=== PATIENT | male | born 1990 | race Caucasian/White ===

== ENCOUNTER 2018-03-12 23:42 | Emergency (ER) | payer OTHER, BC ==
[2018-03-13 00:28] LABS: BASOPHILS 0.4 % (0-2); EOSINOPHILS 3.9 % (0-7); HEMATOCRIT 46.3 % (42.0-54.0); HEMOGLOBIN 16.3 g/dL (13.5-17.5); IMMATURE GRANULOCYTES 0.4 % (0-5); LYMPHOCYTES 35.9 % (15-50); MCH 31.8 pg (26.0-34.0); MCHC 35.2 g/dL (31.0-37.0); MCV 90.3 fL (80.0-100.0); MEAN PLATELET VOLUME 11.1 fL (7.4-10.4); MONOCYTES 5.9 % (2-11); NEUTROPHILS 53.5 % (40-80); PLATELET COUNT 192 10x3/uL (130-400); RBC 5.13 10x6/uL (4.20-6.10); RDW 12.3 % (11.5-14.5); WBC 8.5 10x3/uL (4.8-10.8)
[2018-03-13 00:49] LABS: ALKALINE PHOSPHATASE 78 U/L (46-116); ALT (SGPT) 61 U/L (10-68); BILIRUBIN - TOTAL 0.26 mg/dL (0.2-1.3); CALC OSMOLALITY 282 mosm/kg (275-300); CARBON DIOXIDE 27.3 mmol/L (21.0-32.0); CHLORIDE - SERUM 104 mmol/L (98-107); CREATININE - SERUM 1.2 mg/dL (0.6-1.3); GLUCOSE 101 mg/dL (74-106); POTASSIUM - SERUM 4.2 mmol/L (3.5-5.1); PROTEIN - SERUM 7.5 g/dL (6.4-8.2); SODIUM 141 mmol/L (136-145); TROPONIN-I < 0.017 ng/mL (0.000-0.060); UREA NITROGEN 18 mg/dL (7-18); eGFR NON AFRICAN AMERICAN 78 mL/min (90-120)
== END 2018-03-13 03:15 | disposition home or self-care (01) ==
LOC: D.ER 23:42
PROVIDERS: Family Medicine; Physician Assistant Medical
DX: R16.1 Splenomegaly, not elsewhere classified (principal); F17.200 Nicotine dependence, unspecified, uncomplicated

== ENCOUNTER 2018-03-15 22:04 | Emergency (ER) | payer OTHER, BC ==
[~2018-03-15] VITALS: Ht 177.8 cm; Wt 90.9 kg
[2018-03-15 22:23] VITALS: BP 126/55; Ht 177.8 cm; Wt 90.9 kg
== END 2018-03-15 23:20 | disposition home or self-care (01) ==
LOC: D.ER 22:04
DX: R10.9 Unspecified abdominal pain (principal)